=== PATIENT | female | born 1940 | race Caucasian/White ===

== ENCOUNTER 2018-11-05 11:22 | Outpatient (REF) | payer MEDICARE, SELFPAY ==
[2018-11-05 21:13] LABS: Anion Gap 8.8 mmol/L (3-11); BUN 10 mg/dL (7-18); CO2 27.2 mmol/L (21.0-32.0); CREATININE 0.74 mg/dL (0.55-1.02); Calcium 8.4 mg/dL (8.5-10.1); Chloride 107 mmol/L (98-107); Glucose 97 mg/dL (70-100); Potassium 4.6 mmol/L (3.5-5.1); Sodium 143 mmol/L (136-145)
== END 2018-11-05 11:42 ==
LOC: NCHCN 11:22
PROVIDERS: PCP Nurse Practitioner Family; Visit Provider Family Medicine
DX: I10 Essential (primary) hypertension (principal)
CPT/HCPCS: 80048

== ENCOUNTER 2020-12-19 15:05 | Outpatient (REF) | payer MEDICARE, SELFPAY ==
[2020-12-19 21:21] LABS: ESR 9 mm/hr (0-30); HCT 37.8 % (36.0-46.0); HGB 12.5 g/dL (11.2-15.7); MCH 31.3 pg (27.0-33.0); MCHC 33.1 % (32.0-36.0); MCV 94.7 fL (80-95); Platelet Count 293 10^3/uL (130-400); RBC 3.99 10^6/uL (3.93-5.22); RDW-SD 42.1 fL; WBC 6.67 10^3/uL (4.4-10.8)
[2020-12-19 21:45] LABS: BUN 12 mg/dL (7-18); CREATININE 0.8 mg/dL (0.55-1.02); Calcium 9.2 mg/dL (8.5-10.1); Cholesterol 220 mg/dL (<200); Glucose 74 mg/dL (74-106); HDL Cholesterol 69 mg/dL (40-60); Triglyceride 76 mg/dL (<150)
[2020-12-19 21:46] LABS: Anion Gap 7.9 mmol/L (3-11); CO2 30.1 mmol/L (21.0-32.0); Calculated LDL 136 mg/dL (<100); Chloride 105 mmol/L (98-107); Magnesium 2.2 mg/dL (1.8-2.4); Potassium 3.5 mmol/L (3.5-5.1); Sodium 143 mmol/L (136-145); TSH 2.19 uIU/mL (0.36-3.74)
[2020-12-19 22:08] LABS: C-Reactive Protein < 0.05 mg/dL (0.0-0.3)
== END 2020-12-19 15:06 | disposition home or self-care (01) ==
LOC: NCHCN 15:05
PROVIDERS: PCP Nurse Practitioner Family; Visit Provider Nurse Practitioner Family
DX: R10.13 Epigastric pain (principal); M54.9 Dorsalgia, unspecified
CPT/HCPCS: 80048; 80061; 85027; 85652; 83735; 84443; 86140

== ENCOUNTER 2021-03-12 13:49 | Outpatient (CLI) | payer MEDICARE, SELFPAY ==
--- NOTE | 2021-03-29 09:20 | W.CARDEVENT ---
Date of service: 03/29/21 Time of Service: 09:22 Cardiac Event Recorder Referring Provider:: Shantel Xiao Indications:: Cerebral ischemia Cardiac Event Note: This is a 14-day surveillance system monitor ordered for cerebral ischemia. Predominant rhythm was sinus. Average heart rate was 70, minimum 50, maximum 144 There were rare ventricular ectopic beats. A total of 2 brief runs of nonsustained ventricular tachycardia were observed, both less than 5 beats in duration There were frequent atrial premature beats comprising approximately 4% of total. A total of 39 self-limited atrial runs occurred. The longest of these was 24 beats in duration There was no atrial fibrillation, no high-grade AV block, no pauses greater than 3 seconds Patient symptoms were reported. These corresponded to sinus rhythm
== END 2021-03-12 13:50 | disposition home or self-care (01) ==
PROVIDERS: PCP Nurse Practitioner Family; Visit Provider Nurse Practitioner Family
DX: Z86.73 Personal history of transient ischemic attack (TIA), and cerebral infarction without residual deficits (principal)
CPT/HCPCS: 93246

== ENCOUNTER 2021-03-29 09:22 | Outpatient (CLI) | payer MEDICARE, SELFPAY | END 2021-03-29 09:23 | LOC: CARDO 03-30 11:32 | PROVIDERS: PCP Nurse Practitioner Family; Referring Provider Nurse Practitioner Family; Visit Provider Internal Medicine Cardiovascular Disease | DX: I67.82 Cerebral ischemia (principal); Z86.73 Personal history of transient ischemic attack (TIA), and cerebral infarction without residual deficits; I47.2 Ventricular tachycardia; I49.1 Atrial premature depolarization | CPT/HCPCS: 93248 ==

== ENCOUNTER 2021-05-08 09:37 | Outpatient (CLI) | payer MEDICARE, SELFPAY ==
--- NOTE | 2021-05-08 09:30 | RT.EKG_ITS ---
APPROVED REPORT Exam: Resting ECG Reason for Exam: NPW Baseline needed Patient Location: O HR:86 bpm ECG Measurements Heart Rate 86 AXIS [place] 142 P 68 QRSd 98 QRS 7 QT 369 T 60 QTc 442 Conclusion Sinus rhythm...normal P axis, V-rate 50- 99 Atrial premature complex...SV complex w/ short R-R interval Probable left atrial enlargement...P >50mS, <-0.10mV V1 Poor R wave progression
== END 2021-05-08 09:38 | disposition home or self-care (01) ==
LOC: DI.CARD 09:42
PROVIDERS: PCP Nurse Practitioner Family; Referring Provider Nurse Practitioner Family; Visit Provider Internal Medicine Cardiovascular Disease
DX: I10 Essential (primary) hypertension (principal); I49.8 Other specified cardiac arrhythmias
CPT/HCPCS: 93010

== ENCOUNTER → 2021-05-08 09:37 | Outpatient (BNVA) | payer MEDICARE, SELFPAY | PROVIDERS: PCP Nurse Practitioner Family; Referring Provider Nurse Practitioner Family; Visit Provider Internal Medicine Cardiovascular Disease | DX: I49.8 Other specified cardiac arrhythmias (principal); I10 Essential (primary) hypertension; Z86.73 Personal history of transient ischemic attack (TIA), and cerebral infarction without residual deficits | CPT/HCPCS: 93005; 99203 ==

== ENCOUNTER 2021-11-15 20:35 | Outpatient (REF) | payer MEDICARE, SELFPAY ==
[2021-11-15 18:50] LABS: HCT 35.1 % (36.0-46.0); HGB 11.4 g/dL (11.2-15.7); MCH 30.2 pg (27.0-33.0); MCHC 32.5 % (32.0-36.0); MCV 93 fL (80-95); MPV 9.4 fL (8.0-11.0); Platelet Count 396 10^3/uL (130-400); RBC 3.78 10^6/uL (3.93-5.22); RDW 11.9 % (11.7-14.6); RDW-SD 40.1 fL; WBC 7.39 10^3/uL (4.4-10.8)
[2021-11-15 19:07] LABS: ESR 35 mm/hr (0-30)
[2021-11-15 19:12] LABS: Anion Gap 6.4 mmol/L (3-11); BUN 15 mg/dL (7-18); C-Reactive Protein 1.62 mg/dL (0.0-0.3); CO2 31.6 mmol/L (21.0-32.0); CREATININE 0.9 mg/dL (0.55-1.02); Calcium 9.4 mg/dL (8.5-10.1); Chloride 102 mmol/L (98-107); Creatine Kinase 71 U/L (26-192); Estimated GFR 63.43 (mL/min/1.73m2); Glucose 145 mg/dL (74-106); Potassium 3.6 mmol/L (3.5-5.1); Sodium 140 mmol/L (136-145)
[2021-11-16 11:21] LABS: Hemoglobin A1C 5.9 % (<5.7)
== END 2021-11-15 20:36 | disposition home or self-care (01) ==
LOC: NCHCN 20:35
PROVIDERS: PCP Nurse Practitioner Family; Visit Provider Family Medicine
DX: M79.10 Myalgia, unspecified site (principal); I10 Essential (primary) hypertension
CPT/HCPCS: 80048; 82550; 85027; 85652; 83036; 86140

== ENCOUNTER 2022-01-04 14:13 | Outpatient (REF) | payer MEDICARE, SELFPAY ==
[2022-01-04 15:57] LABS: HCT 39.4 % (36.0-46.0); HGB 12.6 g/dL (11.2-15.7); MCH 30.1 pg (27.0-33.0); MCV 94 fL (80-95); MPV 9.1 fL (8.0-11.0); Platelet Count 368 10^3/uL (130-400); RBC 4.18 10^6/uL (3.93-5.22); RDW-SD 45.1 fL; WBC 13.31 10^3/uL (4.4-10.8)
[2022-01-04 16:09] LABS: ESR 15 mm/hr (0-30)
[2022-01-04 16:15] LABS: C-Reactive Protein 0.77 mg/dL (0.0-0.3)
== END 2022-01-04 14:14 | disposition home or self-care (01) ==
LOC: NCHCN 14:13
PROVIDERS: PCP Nurse Practitioner Family; Visit Provider Family Medicine
DX: M35.3 Polymyalgia rheumatica (principal); R53.83 Other fatigue; M79.10 Myalgia, unspecified site
CPT/HCPCS: 85027; 85652; 86140

== ENCOUNTER 2022-02-13 09:26 | Outpatient (REF) | payer MEDICARE, SELFPAY ==
[2022-02-13 14:49] LABS: ESR 6 mm/hr (0-30)
[2022-02-13 14:54] LABS: C-Reactive Protein 0.07 mg/dL (0.0-0.3)
== END 2022-02-13 09:27 | disposition home or self-care (01) ==
LOC: NCHCN 09:26
PROVIDERS: PCP Nurse Practitioner Family; Visit Provider Family Medicine
DX: M35.3 Polymyalgia rheumatica (principal); R73.03 Prediabetes; M79.18 Myalgia, other site
CPT/HCPCS: 85652; 83036; 86140

== ENCOUNTER 2022-04-02 15:49 | Outpatient (REF) | payer MEDICARE, SELFPAY ==
[2022-04-02 16:01] LABS: ESR 12 mm/hr (0-30)
[2022-04-02 16:18] LABS: ALT 11 U/L (14-59); AST 18 U/L (15-37); Albumin 3.4 g/dL (3.4-5.0); Alkaline Phosphatase 62 U/L (46-116); BUN 14 mg/dL (7-18); Bilirubin, Total 0.5 mg/dL (0.2-1.0); CREATININE 0.8 mg/dL (0.55-1.02); Calcium 9.3 mg/dL (8.5-10.1); Calculated LDL 63 mg/dL (<100); Chloride 103 mmol/L (98-107); Cholesterol 168 mg/dL (<200); Estimated GFR 73.06 (mL/min/1.73m2); Glucose 84 mg/dL (74-106); HDL Cholesterol 97 mg/dL (40-60); Potassium 3.4 mmol/L (3.5-5.1); Sodium 142 mmol/L (136-145); Total Protein 6.5 g/dL (6.4-8.2); Triglyceride 40 mg/dL (<150)
[2022-04-02 17:38] LABS: C-Reactive Protein 0.76 mg/dL (0.0-0.3); Creatine Kinase 65 U/L (26-192)
== END 2022-04-02 15:50 | disposition home or self-care (01) ==
LOC: NCHCN 15:49
PROVIDERS: PCP Nurse Practitioner Family; Visit Provider Family Medicine
DX: I10 Essential (primary) hypertension (principal); M35.3 Polymyalgia rheumatica
CPT/HCPCS: 80053; 80061; 82550; 85652; 86140

== ENCOUNTER 2022-07-23 19:11 | Outpatient (REF) | payer MEDICARE, SELFPAY ==
[2022-07-23 15:51] LABS: HCT 37.5 % (36.0-46.0); HGB 12.3 g/dL (11.2-15.7); MCH 30.3 pg (27.0-33.0); MCHC 32.8 % (32.0-36.0); MCV 92 fL (80-95); MPV 9.4 fL (8.0-11.0); Platelet Count 340 10^3/uL (130-400); RBC 4.06 10^6/uL (3.93-5.22); RDW 12.2 % (11.7-14.6); RDW-SD 41.3 fL
[2022-07-23 16:21] LABS: ESR 13 mm/hr (0-30)
[2022-07-23 16:35] LABS: ALT 17 U/L (14-59); AST 15 U/L (15-37); Albumin 3.4 g/dL (3.4-5.0); Alkaline Phosphatase 59 U/L (46-116); Anion Gap 5.9 mmol/L (3-11); BUN 12 mg/dL (7-18); Bilirubin, Total 0.3 mg/dL (0.2-1.0); C-Reactive Protein 0.47 mg/dL (0.0-0.3); CO2 31.1 mmol/L (21.0-32.0); CREATININE 0.8 mg/dL (0.55-1.02); Calcium 9.1 mg/dL (8.5-10.1); Chloride 103 mmol/L (98-107); Creatine Kinase 69 U/L (26-192); Estimated GFR 73.06 (mL/min/1.73m2); Glucose 100 mg/dL (74-106); Potassium 3.6 mmol/L (3.5-5.1); Sodium 140 mmol/L (136-145); TSH (W/Ref FT4) 1.43 uIU/mL (0.36-3.74); Total Protein 6.7 g/dL (6.4-8.2)
[2022-07-23 18:23] LABS: Hemoglobin A1C 5.9 % (<5.7)
== END 2022-07-23 19:12 | disposition home or self-care (01) ==
LOC: NCHCN 19:11
PROVIDERS: PCP Nurse Practitioner Family; Visit Provider Family Medicine
DX: M35.3 Polymyalgia rheumatica (principal); R73.03 Prediabetes; E78.5 Hyperlipidemia, unspecified; R61 Generalized hyperhidrosis
CPT/HCPCS: 80053; 82550; 85027; 85652; 83036; 84443; 86140

== ENCOUNTER 2022-10-08 19:50 | Outpatient (REF) | payer MEDICARE, SELFPAY ==
[2022-10-08 19:33] LABS: C-Reactive Protein 0.14 mg/dL (0.0-0.3)
== END 2022-10-08 19:51 | disposition home or self-care (01) ==
LOC: NCHCN 19:50
PROVIDERS: PCP Nurse Practitioner Family; Visit Provider Family Medicine
DX: M35.3 Polymyalgia rheumatica (principal)
CPT/HCPCS: 86140

== ENCOUNTER 2023-03-27 09:29 | Outpatient (REF) | payer MEDICARE, SELFPAY ==
[2023-03-27 15:38] LABS: ESR 7 mm/hr (0-30)
[2023-03-27 15:56] LABS: C-Reactive Protein < 0.50 mg/dL (<or=0.5)
== END 2023-03-27 09:30 | disposition home or self-care (01) ==
LOC: NCHCN 09:29
PROVIDERS: PCP Nurse Practitioner Family; Visit Provider Family Medicine
DX: M35.3 Polymyalgia rheumatica (principal)
CPT/HCPCS: 85652; 86140

== ENCOUNTER 2023-04-24 09:46 | Outpatient (REF) | payer MEDICARE, SELFPAY ==
[2023-04-24 15:41] LABS: ESR 9 mm/hr (0-30)
[2023-04-24 15:55] LABS: C-Reactive Protein 0.54 mg/dL (<or=0.5)
== END 2023-04-24 09:47 | disposition home or self-care (01) ==
LOC: NCHCN 09:46
PROVIDERS: PCP Nurse Practitioner Family; Referring Provider Family Medicine; Visit Provider Family Medicine
DX: M35.3 Polymyalgia rheumatica (principal)
CPT/HCPCS: 85652; 86140

== ENCOUNTER 2023-06-27 14:56 | Outpatient (REF) | payer MEDICARE, SELFPAY ==
[2023-06-27 18:49] LABS: HCT 38.1 % (36.0-46.0); HGB 12.5 g/dL (11.2-15.7); MCH 30.5 pg (27.0-33.0); MCHC 32.8 % (32.0-36.0); MCV 93 fL (80-95); MPV 9.6 fL (8.0-11.0); Platelet Count 346 10^3/uL (130-400); RDW 12.3 % (11.7-14.6); RDW-SD 42.3 fL; WBC 12.12 10^3/uL (4.4-10.8)
[2023-06-27 18:52] LABS: ESR 14 mm/hr (0-30)
[2023-06-27 19:09] LABS: ALT 18 U/L (14-59); AST 17 U/L (15-37); Albumin 3.6 g/dL (3.4-5.0); Alkaline Phosphatase 69 U/L (46-116); Anion Gap 9.4 mmol/L (3-11); BUN 19 mg/dL (7-18); Bilirubin, Total 0.4 mg/dL (0.2-1.0); CO2 29.6 mmol/L (21.0-32.0); CREATININE 0.8 mg/dL (0.55-1.02); Calcium 9.2 mg/dL (8.5-10.1); Chloride 105 mmol/L (98-107); Creatine Kinase 81 U/L (26-192); Estimated GFR 72.61 (mL/min/1.73m2); Glucose 96 mg/dL (74-106); Potassium 4.2 mmol/L (3.5-5.1); Sodium 144 mmol/L (136-145)
[2023-06-27 19:14] LABS: Hemoglobin A1C 6.1 % (<5.7)
[2023-06-27 19:18] LABS: C-Reactive Protein < 0.50 mg/dL (<or=0.5)
== END 2023-06-27 14:57 | disposition home or self-care (01) ==
LOC: NCHCN 14:56
PROVIDERS: PCP Family Medicine; Visit Provider Family Medicine
DX: R73.03 Prediabetes (principal); M35.3 Polymyalgia rheumatica
CPT/HCPCS: 80053; 82550; 85027; 85652; 83036; 86140

== ENCOUNTER 2024-02-19 04:23 | Outpatient (CLI) | payer MEDICARE, SELFPAY ==
--- NOTE | 2024-02-19 23:59 | PDOC.EEG_ITS ---
Neurology EEG EEG: [facility] Department of Neurology EEG REPORT Date of Recordin02/19/24 Interpreting Physician: Dr. Vale Espinoza PCP/Referring Provider: Dr. Bisi Lincoln Reason for study: Verena Waddell has had spells x2 years in which she cannot speak or read, lasting 20minutes, without GRACY. Concerning for seizures. Current Medications: Amlodipine 10 mg QD Aspirin 81 mg QD Losartin 100 mg QD Prednisone 3 mg QD Rosuvastin 5 mg QD METHODS: A 21 channel digitized electroencephalogram was performed in the [facility] Clinical Neurophysiology Laboratory. The 10/20 international system of electrode placement was used and bipolar and referential electrode montages were recorded. In addition to EEG the patient was monitored for EKG and lateral/vertical eye movements. Activation procedures of photic stimulation and hyperventilation were performed if applicable. Video was used during activation procedures and during events where applicable. The duration of the recording was 30 minutes. DESCRIPTION OF EEG: The patient was noted to be awake and drowsy during the recording. During maximal wakefulness a 9-Hz posterior background rhythm was present which was well-modulated, symmetrical, reactive to eye opening, and of moderate voltage. With eye opening the background activity changed to a low voltage mixture of alp aquino, beta, and occasional theta range frequencies. Faster frequencies were present in the bilateral anterior head regions. There was a normal anterior- posterior voltage gradient. During drowsiness, there was attenuation of the posterior dominant background rhythm and vertex waves. No stage II sleep was recorded. There was occasional generalized, moderate-amplitude, non-rhythmic generalized t heta slowing occurring in bursts of 1 second. Activating Procedures: Photic stimulation was performed which produced a symmetrical posterior driving response at various flash frequencies. Hyperventilation was not performed. EKG: EKG revealed normal sinus rhythm. INTERPRETATION: This EEG is abnormal due to occasional generalized non-rhythmic theta slowing. PRIOR EEG: none CLINICAL CORRELATION: The above slowing is suggestive of a mild diffuse cerebral encephalopathy of broad differential including toxic-metabolic etiology. No focal regions of cerebral dysfunction or epileptiform activity was present. Clinical correlation is advised. Vale Espinoza MD Date of service: 02/19/24
== END 2024-02-19 04:24 | disposition home or self-care (01) ==
LOC: RT 04:23
PROVIDERS: PCP Family Medicine; Visit Provider Family Medicine
DX: R41.0 Disorientation, unspecified (principal); R94.01 Abnormal electroencephalogram [EEG]
CPT/HCPCS: 95816

== ENCOUNTER → 2024-02-20 10:45 | Outpatient (BNVA) | payer MEDICARE, SELFPAY | PROVIDERS: PCP Family Medicine; Referring Provider Family Medicine; Visit Provider Psychiatry & Neurology Neurology ==

== ENCOUNTER 2024-12-10 13:04 | Outpatient (REF) | payer MEDICARE, SELFPAY ==
[2024-12-10 15:29] LABS: ESR 14 mm/hr (0-30)
[2024-12-10 15:41] LABS: Hemoglobin A1C 5.9 % (<5.7)
[2024-12-10 16:40] LABS: ALT 16 U/L (14-59); AST 18 U/L (15-37); Albumin 3.6 g/dL (3.4-5.0); Alkaline Phosphatase 74 U/L (46-116); Anion Gap 11.8 mmol/L (3-11); BUN 12 mg/dL (7-18); Bilirubin, Total 0.4 mg/dL (0.2-1.0); CO2 26.2 mmol/L (21.0-32.0); Calcium 9.3 mg/dL (8.5-10.1); Chloride 104 mmol/L (98-107); Estimated GFR 84.17 (mL/min/1.73m2); Glucose 94 mg/dL (74-106); Potassium 3.9 mmol/L (3.5-5.1); Sodium 142 mmol/L (136-145); Total Protein 7.0 g/dL (6.4-8.2)
== END 2024-12-10 13:05 | disposition home or self-care (01) ==
LOC: NCHCN 13:04
PROVIDERS: PCP Family Medicine; Visit Provider Family Medicine
DX: R73.03 Prediabetes (principal); M35.3 Polymyalgia rheumatica; I10 Essential (primary) hypertension
CPT/HCPCS: 80053; 85652; 83036